=== PATIENT | female | born 1960 | race Caucasian/White ===

== ENCOUNTER 2017-03-25 09:39 | Emergency (ER) | payer MEDICARE, BC ==
[~2017-03-25] VITALS: Ht 175.3 cm; Wt 92.3 kg
[~2017-03-25 09:39] MED LIST: ALBUTEROL SULFAT3 M3 IH; ALBUTEROL0.09 MG/A3 IH; ALFALFA650 MG PO; ALLERGY RELIEF25 M2 PO; ASPIRIN E.C. 8181 MG PO; ATROVENT I0.2 MG/1 M IH; BUDESONIDE0.25 MG/2 IH; CLEOCIN HCL300 MG PO; DANDELION ROOT PO; DOXYCYCLINE 10100 MG PO; LIDODERM PATCH TP; LORTAB 5/500 501 TAB PO; NAPROSYN500 MG PO; NITROSTAT0.4 MG/TAB SL; NORCO 325 MG-51 TAB PO; PERCOCET 325 MG1 TA2 PO; PREMARIN0.625 MG PO; PULMICORT0.25 MG/2 IH; RITE AID NATU200 MCG PO; SINGULAIR; TRAMADOL; TYLENOL 325MG325 MG PO; TYLENOL 500MG500 MG PO; ULTRAM 50MG TAB50 MG PO; VITAMIN B-6100 MG PO; VITAMIN B12250 MCG PO; VITAMIN D50000 I2 PO; XOPENEX HF0.045 MG/A IH; ZYRTEC 10MG10 MG PO; [UNRECOGNIZED DRUG - REMARK] PO
[2017-03-25 09:53] VITALS: TEMP 97.8
[2017-03-25] MEDS ORDERED: PERCOCET 325 MG1 TA2 PO (10:57)
[2017-03-25 11:51] VITALS: BP 138/86; PULSE 51
== END 2017-03-25 11:51 | disposition home or self-care (01) ==
LOC: COL.ER 09:39
DX: S52.502A Unspecified fracture of the lower end of left radius, initial encounter for closed fracture (principal); M79.7 Fibromyalgia; Z79.82 Long term (current) use of aspirin; W01.0XXA Fall on same level from slipping, tripping and stumbling without subsequent striking against object, initial encounter

== ENCOUNTER → 2017-09-01 | Outpatient (CLI) | payer MEDICARE, OTHER | LOC: MC.RAD 11:00 | DX: Z12.31 Encounter for screening mammogram for malignant neoplasm of breast (principal) ==

== ENCOUNTER → 2017-09-10 | Outpatient (CLI) | payer MEDICARE, BC | LOC: MC.RAD 10:55 | DX: N64.89 Other specified disorders of breast (principal); Z98.890 Other specified postprocedural states ==

== ENCOUNTER 2017-10-20 16:33 | Emergency (ER) | payer MEDICARE, BC ==
[~2017-10-20] VITALS: Ht 175.3 cm; Wt 92.3 kg
[~2017-10-20 16:33] MED LIST changes: +VITAMIN D31000 I1; -VITAMIN D50000 I2 PO
[2017-10-20 16:43] VITALS: TEMP 97.7
[2017-10-20 17:23] LABS: BASO # 0.1 (0.0-0.2); BASO % 0.8 % (0.0-2.0); EOS # 0.2 (0.0-0.7); EOS % 2.3 % (0-4.0); GRAN # 3.7 (1.4-6.5); GRAN % 56.7 % (42.2-75.2); HEMATOCRIT 38.5 % (37.0-47.0); HEMOGLOBIN 12.6 g/dl (12.5-16.0); LYMPH # 2.1 (1.2-3.4); LYMPH % 32.1 % (20.0-51.0); MEAN CELL VOLUME 83 fl (80.0-100.0); MEAN CORPUSCULAR HEMOGLOBIN 27 pg (27.0-31.0); MEAN CORPUSCULAR HGB CONC 33 g/dl (33.0-37.0); MEAN PLATELET VOLUME 10.9 fl (7.4-10.4); MONO # 0.5 (0.1-0.6); MONO % 7.9 % (1.7-9.3); PLATELET COUNT 217 K/mm3 (130-400); RED BLOOD COUNT 4.65 M/mm3 (4.10-5.30); REDCELL DISTRIBUTION WIDTH-CV 14.8 % (11.5-14.5)
[2017-10-20] MEDS ORDERED: PROAIR HFA0.09 MG/AC IH (17:45)
[2017-10-20] MEDS ORDERED: RANEXA 500MG T500 MG PO (17:47)
[2017-10-20] MEDS ORDERED: FLEXERIL 1010 MG/TAB PO (17:50)
[2017-10-20] MEDS ORDERED: PRIL40 PO (17:51)
[2017-10-20 18:05] LABS: ALANINE AMINOTRANSFERASE 23 U/L (9-52); ALBUMIN 4.1 gm/dL (3.5-5.0); ALKALINE PHOSPHATASE 72 U/L (50-136); ANION GAP 7 mmol/L (7-16); AST,SGOT 22 U/L (15-37); BILIRUBIN,TOTAL 0.4 mg/dL (0.0-1.0); BLOOD UREA NITROGEN 16 mg/dL (7-17); CALCIUM 10.6 mg/dL (8.4-10.2); CARBON DIOXIDE 27 mmol/L (22-30); CHLORIDE 105 mmol/L (98-107); CREATINE KINASE 50 U/L (30-135); CREATININE, serum 0.84 mg/dL (0.52-1.25); GLUCOSE 132 mg/dL (74-106); POTASSIUM 4.1 mmol/L (3.4-5.0); SODIUM 139 mmol/L (137-145); TOTAL PROTEIN 6.8 gm/dL (6.4-8.2)
[2017-10-20 18:20] LABS: TROPONIN-I < 0.012 ng/mL (0.000-0.034)
[2017-10-20] MEDS ORDERED: ANTIVERT 25MG25 MG PO (18:20)
[2017-10-20] MEDS ORDERED: ZOFRAN ODT4 MG PO (18:20)
[2017-10-20 18:50] VITALS: BP 145/85; PULSE 76
== END 2017-10-20 18:55 | disposition home or self-care (01) ==
LOC: COL.ER 16:33
PROVIDERS: Emergency Medicine
DX: R42 Dizziness and giddiness (principal); G35 Multiple sclerosis; G89.29 Other chronic pain; Z90.89 Acquired absence of other organs; Z98.890 Other specified postprocedural states; Z79.82 Long term (current) use of aspirin
CPT/HCPCS: J2550; J7030

== ENCOUNTER 2018-04-17 06:01 | Day surgery (SDC) | payer MEDICARE, BC ==
[2018-04-17] VITALS (13 sets, daily range): BP systolic 102–129; BP diastolic 65–75; PULSE 42–99; TEMP 97.9
[~2018-04-17] VITALS: Ht 175.4 cm; Wt 94.4 kg
[~2018-04-17 06:01] MED LIST changes: +ANTIVERT 25MG25 MG PO; +FLEXERIL 1010 MG/TAB PO; +PRIL40 PO; +PROAIR HFA0.09 MG/AC IH; +RANEXA 500MG T500 MG PO; +ZOFRAN ODT4 MG PO
[2018-04-17] MEDS ORDERED: IPRATROPIUM BROM3 M1 IH (06:37)
[2018-04-17] MEDS ORDERED: NASALCROM5.2 MG/ACT NS (06:39)
[2018-04-17] MEDS ORDERED: DIVIGEL1 MG/Packe TD (06:40)
[2018-04-17 06:41] LABS: HEMATOCRIT 41.6 % (37.0-47.0); HEMOGLOBIN 13.2 g/dl (12.5-16.0); MEAN CELL VOLUME 83 fl (80.0-100.0); MEAN CORPUSCULAR HEMOGLOBIN 27 pg (27.0-31.0); MEAN CORPUSCULAR HGB CONC 32 g/dl (33.0-37.0); MEAN PLATELET VOLUME 10.5 fl (7.4-10.4); PLATELET COUNT 247 K/mm3 (130-400); RED BLOOD COUNT 4.99 M/mm3 (4.10-5.30); REDCELL DISTRIBUTION WIDTH-CV 14.7 % (11.5-14.5)
[2018-04-17] MEDS ORDERED: XOPENEX HF0.045 MG/A IH (06:41)
[2018-04-17] MEDS ORDERED: HYDROCORTISON28.4 GM TP (06:47)
[2018-04-17] MEDS ORDERED: SINGULAIR 110 MG/TAB PO (06:48)
[2018-04-17] MEDS ORDERED: ZOFRAN ODT4 MG PO (06:49)
[2018-04-17 06:50] LABS: CALCIUM 10.8 mg/dL (8.4-10.2); CREATININE, serum 0.76 mg/dL (0.52-1.25); POTASSIUM 4.1 mmol/L (3.4-5.0)
[2018-04-17] MEDS ORDERED: VITAMIN B-6100 MG PO (06:50)
[2018-04-17] MEDS ORDERED: ZANTAC 300300 MG PO (06:51)
[2018-04-17] MEDS ORDERED: RANEXA 500MG T500 MG PO (06:52)
[2018-04-17] MEDS ORDERED: TOPROL XL 25MG25 MG PO (06:53)
[2018-04-17] MEDS ORDERED: PLAVIX 75MG TAB75 MG PO (06:55)
--- NOTE | 2018-04-17 09:30 | NUR ---
Drowsy and oriented. Denies pain and needs at this time. Sister and daughter bedside. VSS. Right groin soft with palpable pedal pulses bilat.
--- NOTE | 2018-04-17 13:49 | NUR ---
Ambulated to bathroom with steady gait. INT discontinued intact. Discharge instructions given . Tranferred to private car by louis
[2018-04-17 15:14] LABS: PROTHROMBIN TIME 11.1 SECONDS (9.7-12.8)
== END 2018-04-17 15:04 | disposition home or self-care (01) ==
LOC: COL.CAR 06:01
PROVIDERS: Internal Medicine Interventional Cardiology
DX: I20.9 Angina pectoris, unspecified (principal); R94.39 Abnormal result of other cardiovascular function study; Z87.891 Personal history of nicotine dependence; G35 Multiple sclerosis; K58.9 Irritable bowel syndrome, unspecified; I73.00 Raynaud's syndrome without gangrene; M06.9 Rheumatoid arthritis, unspecified; J44.9 Chronic obstructive pulmonary disease, unspecified; Z79.899 Other long term (current) drug therapy
CPT/HCPCS: J1644; J2250; J3010; Q9967

== ENCOUNTER 2018-10-29 14:00 | Outpatient (RCR) | payer MEDICARE, BC ==
[~2018-10-29 14:00] MED LIST changes: +DIVIGEL1 MG/Packe TD; +HYDROCORTISON28.4 GM TP; +IPRATROPIUM BROM3 M1 IH; +NASALCROM5.2 MG/ACT NS; +PLAVIX 75MG TAB75 MG PO; +SINGULAIR 110 MG/TAB PO; +TOPROL XL 25MG25 MG PO; +ZANTAC 300300 MG PO
== END 2019-01-12 | disposition home or self-care (01) ==
LOC: WSST
DX: R49.0 Dysphonia (principal); Z87.891 Personal history of nicotine dependence; J44.9 Chronic obstructive pulmonary disease, unspecified; K21.9 Gastro-esophageal reflux disease without esophagitis; G35 Multiple sclerosis

== ENCOUNTER → 2020-05-16 | Outpatient (CLI) | payer MEDICARE, BC | LOC: COL.RAD 10:00 | DX: Z01.812 Encounter for preprocedural laboratory examination (principal); R10.32 Left lower quadrant pain | CPT/HCPCS: Q9967 ==

== ENCOUNTER 2020-06-18 19:03 | Emergency (ER) | payer MEDICARE, BC ==
[~2020-06-18] VITALS: Ht 172.7 cm; Wt 90.9 kg
[2020-06-18 19:18] VITALS: TEMP 97.5
[2020-06-18] MEDS ORDERED: CEPHALEXIN500 M1 PO (20:09)
[2020-06-18 22:02] VITALS: BP 130/60; PULSE 78
== END 2020-06-18 20:40 | disposition home or self-care (01) ==
LOC: COL.ER 19:03
DX: L02.11 Cutaneous abscess of neck (principal); G89.29 Other chronic pain; M54.9 Dorsalgia, unspecified; J45.909 Unspecified asthma, uncomplicated; Z88.2 Allergy status to sulfonamides; Z88.5 Allergy status to narcotic agent; Z87.891 Personal history of nicotine dependence; Z88.3 Allergy status to other anti-infective agents; Z79.891 Long term (current) use of opiate analgesic; Z79.82 Long term (current) use of aspirin

== ENCOUNTER → 2020-08-15 | Outpatient (CLI) | payer MEDICARE, BC ==
[~2020-08-15] MED LIST changes: +CEPHALEXIN500 M1 PO
== END ==
LOC: MC.RAD 12:49
DX: Z12.31 Encounter for screening mammogram for malignant neoplasm of breast (principal)

== ENCOUNTER → 2021-11-30 | Outpatient (CLI) | payer MEDICARE, BC | LOC: MC.RAD 11-02 13:15 | DX: Z12.31 Encounter for screening mammogram for malignant neoplasm of breast (principal) ==